=== PATIENT | female | born 1960 | race Hispanic/Latino ===

== ENCOUNTER 2018-07-07 16:53 | Emergency (ER) | payer BC, OTHER ==
[~2018-07-07] VITALS: Ht 160 cm; Wt 76.7 kg
--- OUTSIDE RECORDS SUMMARY | 2018-07-07 16:56 | XMS REPORT | Continuity of Care Document ---
Author Author [facility] Interface Address Unknown Phone Unavailable Problems Problem Status Onset Date Classification Date Reported Comments Source History of migraine Active Problem 09/09/2017 [facility] History of breast cancer Active Diagnosis 09/09/2017 [facility] History of rheumatoid arthritis Active Problem 09/09/2017 [facility] Fatigue, unspecified type Active Diagnosis 08/28/2017 [facility] History of vitamin D deficiency Active Problem 09/09/2017 [facility] Special screening for malignant neoplasms, colon Active Diagnosis 08/28/2017 [facility] Breast cancer Active Problem 08/28/2017 [facility] Prediabetes Active Diagnosis 09/09/2017 [facility] High cholesterol Active Diagnosis 09/09/2017 [facility] Encounter to discuss test results Active Diagnosis 09/09/2017 [facility] Rheumatoid arthritis Active Problem 04/25/2016 [facility] Migraine Active Problem 04/25/2016 [facility] Routine general medical examination at health care facility Active Diagnosis 01/05/2014 [facility] Encounter for screening mammogram for malignant neoplasm of breast Active Diagnosis 01/05/2014 [facility] Encounter for screening colonoscopy Active Diagnosis 01/05/2014 [facility] Acute upper respiratory infection, unspecified Active Diagnosis 01/31/2016 [facility] Cough Active Diagnosis 01/31/2016 [facility] Screening for breast cancer Active Diagnosis 04/25/2016 [facility] Acute cystitis with hematuria Active Diagnosis 04/25/2016 [facility] Cloudy urine Active Diagnosis 04/25/2016 [facility] Upper respiratory tract infection, unspecified type Active Diagnosis 04/25/2016 [facility] Medications Medication Details Route Status Patient Instructions Ordering Provider Order Date Source Atorvastatin Calcium 1 tablet Orally Active 10 mg Orally Once a day Jake 09/05/2017 [facility] Cipro 1 tablet Orally Active 500 MG Orally Twice a day [place] 04/22/2016 [facility] Levaquin 1 tablet Orally Active 500 MG Orally Once a day Ted 01/26/2016 [facility] Bromfed DM 10 ml as needed Orally Active 30-2-10 MG/5ML Orally every 6 hrs Ted 01/26/2016 [facility] BRISDELLE 1- BRAND MEDICALLY NECESSARY PO Active 7.5MG PO once a day at night [place] 01/05/2014 [facility] Lipitor 1 tablet Orally Active 20 mg Orally Once a day Ted 12/29/2013 [facility] Vitamin D (Ergocalciferol) 1 capsule Orally Active 25555 UNIT Orally once per week [place] 12/29/2013 [facility] Tramadol HCl 1 tablet as needed Orally Active 50 MG Orally every 6 hrs [facility] Letrozole 1 tablet Orally Active 2.5 MG Orally Once a day [facility] PrednisoLONE 1 tablet Orally Active 5 MG Orally Once a day [facility] Methotrexate Sodium Unknown Orally Active 5 MG Orally [facility] Humira 0.8 Subcutaneous Active 40 MG/0.8ML Subcutaneous [facility] Methotrexate Unknown Orally Active 2.5 MG Orally [facility] Esgic 1 capsule as needed Orally Active 50-325-40 MG Orally every 4 hrs [facility] [place] 1 tablet as needed Orally Active 7.5-325 MG Orally every 6 hrs [facility] Tramadol HCl 1 tablet as needed Orally Active 50 MG Orally every 6 hrs [facility] Gabapentin 2 capsule Orally Active 300 MG Orally daily at HS [facility] Vitamin D (Ergocalciferol) 1 capsule Orally Active 07817 UNIT Orally once a week [facility] Methotrexate Sodium Unknown Orally Active 2.5 MG Orally [facility] PrednisoLONE 1 tablet Orally Active 5 MG Orally Once a day [facility] Letrozole 1 tablet Orally Active 2.5 MG Orally Once a day [place] [facility] Allergies, Adverse Reactions, Alerts Substance Category Reaction Severity Reaction type Status Date Reported Comments Source N.K.D.A. Adverse Reaction Info Not Available Adverse Reaction Active 09/05/2017 [facility] Immunizations Immunization Date Given Site Status Last Updated Comments Source FLU 3YRS & [place] [address] 12/28/2013 completed [facility] Results Order Name Results Value Reference Range Date Interpretation Comments Source Vital Signs Vital Sign Value Date Comments Source Weight 176 09/05/2017 [facility] Height 66 09/05/2017 [facility] Heart Rate 80 09/05/2017 [facility] Diastolic (mm Hg) 80 09/05/2017 [facility] Systolic (mm Hg) 118 09/05/2017 [facility] Weight 177 08/22/2017 [facility] Height 66 08/22/2017 [facility] Heart Rate 68 08/22/2017 [facility] Diastolic (mm Hg) 74 08/22/2017 [facility] Systolic (mm Hg) 118 08/22/2017 [facility] Weight 162 04/22/2016 [facility] Height 66 04/22/2016 [facility] Heart Rate 75 04/22/2016 [facility] Diastolic (mm Hg) 77 04/22/2016 [facility] Systolic (mm Hg) 118 04/22/2016 [facility] Weight 168 01/26/2016 [facility] Height 66 01/26/2016 [facility] Temperature Oral (F) 98.4 F 01/26/2016 [facility] Heart Rate 75 01/26/2016 [facility] Diastolic (mm Hg) 75 01/26/2016 [facility] Systolic (mm Hg) 125 01/26/2016 [facility] Weight 129 12/28/2013 [facility] Height 66 12/28/2013 [facility] Temperature Oral (F) 98.9 F 12/28/2013 [facility] Heart Rate 88 12/28/2013 [facility] Diastolic (mm Hg) 72 12/28/2013 [facility] Systolic (mm Hg) 110 12/28/2013 [facility] Encounters Location Location Details Encounter Type Encounter Number Reason For Visit Attending Provider ADM Date DC Date Status Source [facility] FIELD CAPTAIN- PHYSICAL EXAM [id number] 12/28/2013 12/28/2013 [facility] FIELD CAPTAIN- PHYSICAL EXAM [id number] 12/28/2013 12/28/2013 [facility] FIELD CAPTAIN- PHYSICAL EXAM [id number] 12/28/2013 12/28/2013 [facility] FIELD CAPTAIN- PHYSICAL EXAM [id number] 12/28/2013 12/28/2013 [facility] FIELD CAPTAIN- PHYSICAL EXAM [id number] 12/28/2013 12/28/2013 [facility] FIELD CAPTAIN- PHYSICAL EXAM [id number] 12/28/2013 12/28/2013 [facility] FIELD CAPTAIN- PHYSICAL EXAM [id number] 12/28/2013 12/28/2013 [facility] FIELD CAPTAIN- PHYSICAL EXAM [id number] 12/28/2013 12/28/2013 [facility] FIELD CAPTAIN- PHYSICAL EXAM [id number] 12/28/2013 12/28/2013 [facility] FIELD CAPTAIN- PHYSICAL EXAM [id number] 12/28/2013 12/28/2013 [facility] Lab results- rx sent [id number] 12/29/2013 12/29/2013 [facility] Lab results- rx sent [id number] 12/29/2013 12/29/2013 [facility] Lab results- rx sent [id number] 12/29/2013 12/29/2013 [facility] Lab results- rx sent [id number] 12/29/2013 12/29/2013 [facility] Lab results- rx sent [id number] 12/29/2013 12/29/2013 [facility] Lab results- rx sent [id number] 12/29/2013 12/29/2013 [facility] Lab results- rx sent [id number] 12/29/2013 12/29/2013 [facility] Lab results- rx sent [id number] 12/29/2013 12/29/2013 [facility] Lab results- rx sent [id number] 12/29/2013 12/29/2013 [facility] Lab results- rx sent [id number] 12/29/2013 12/29/2013 [facility] [place] presciption [id number] 01/05/2014 01/05/2014 [facility] [place] presciption [id number] 01/05/2014 01/05/2014 [facility] [place] presciption [id number] 01/05/2014 01/05/2014 [facility] [place] presciption [id number] 01/05/2014 01/05/2014 [facility] [place] presciption [id number] 01/05/2014 01/05/2014 [facility] [place] presciption [id number] 01/05/2014 01/05/2014 [facility] [place] presciption [id number] 01/05/2014 01/05/2014 [facility] [place] presciption [id number] 01/05/2014 01/05/2014 [facility] Prior Auth needed on [place] [id number] 01/11/2014 01/11/2014 [facility] Prior Auth needed on [place] [id number] 01/11/2014 01/11/2014 [facility] Prior Auth needed on [place] [id number] 01/11/2014 01/11/2014 [facility] Prior Auth needed on [place] [id number] 01/11/2014 01/11/2014 [facility] Prior Auth needed on [place] [id number] 01/11/2014 01/11/2014 [facility] Prior Auth needed on [place] [id number] 01/11/2014 01/11/2014 [facility] Prior Auth needed on [place] [id number] 01/11/2014 01/11/2014 [facility] Prior Auth needed on [place] [id number] 01/11/2014 01/11/2014 [facility] Prior AUth on [place] [id number] 01/13/2014 01/13/2014 [facility] Prior AUth on [place] [id number] 01/13/2014 01/13/2014 [facility] Prior AUth on [place] [id number] 01/13/2014 01/13/2014 [facility] Prior AUth on [place] [id number] 01/13/2014 01/13/2014 [facility] Prior AUth on [place] [id number] 01/13/2014 01/13/2014 [facility] Prior AUth on [place] [id number] 01/13/2014 01/13/2014 [facility] Requesting Rx and PA on Paroxitine [id number] 02/09/2014 02/09/2014 [facility] Requesting Rx and PA on Paroxitine [id number] 02/09/2014 02/09/2014 [facility] Requesting Rx and PA on Paroxitine [id number] 02/09/2014 02/09/2014 [facility] Requesting Rx and PA on Paroxitine [id number] 02/09/2014 02/09/2014 [facility] Requesting Rx and PA on Paroxitine [id number] 02/09/2014 02/09/2014 [facility] Requesting Rx and PA on Paroxitine [id number] 02/09/2014 02/09/2014 [facility] MIGRAINES [id number] 12/28/2014 12/28/2014 [facility] MIGRAINES [id number] 12/28/2014 12/28/2014 [facility] MIGRAINES [id number] 12/28/2014 12/28/2014 [facility] MIGRAINES [id number] 12/28/2014 12/28/2014 [facility] Unknown [id number] 01/09/2015 01/09/2015 [facility] Unknown [id number] 01/09/2015 01/09/2015 [facility] Unknown [id number] 01/09/2015 01/09/2015 [facility] Unknown [id number] 01/09/2015 01/09/2015 [facility] Order for Pawan Breast US [id number] 02/13/2015 02/13/2015 [facility] Order for [place] Breast US [id number] 02/13/2015 02/13/2015 [facility] Order for [place] Breast US [id number] 02/13/2015 02/13/2015 [facility] Order for [place] Breast US [id number] 02/13/2015 02/13/2015 [facility] Order for breast Biopsy [id number] 02/27/2015 02/27/2015 [facility] Order for breast Biopsy [id number] 02/27/2015 02/27/2015 [facility] Order for breast Biopsy [id number] 02/27/2015 02/27/2015 [facility] cough [id number] 01/26/2016 01/26/2016 [facility] cough [id number] 01/26/2016 01/26/2016 [facility] UTI [id number] 04/22/2016 04/22/2016 [facility] Procedures Procedure Code Date Perfomer Comments Source
--- OUTSIDE RECORDS SUMMARY | 2018-07-07 16:57 | XMS REPORT ---
Author Venu Lopes Organization [employer] Address Unknown Phone Unavailable Care Team Providers Care Claim Service Representative Name Role Phone Venu Joseph CP Unavailable Allergies, Adverse Reactions, Alerts Substance Reaction Event Type N.K.D.A. Info Not Available Non Drug Allergy Problems Problem Type Condition Code Onset Dates Condition Status Assessment History of migraine Z86.69 Active Assessment History of breast cancer Z85.3 Active Assessment History of rheumatoid arthritis Z87.39 Active Assessment Fatigue, unspecified type R53.83 Active Assessment History of vitamin D deficiency Z86.39 Active Problem History of vitamin D deficiency Z86.39 Active Problem History of rheumatoid arthritis Z87.39 Active Problem History of breast cancer Z85.3 Active Assessment Encounter for routine gynecological examination Z01.419 Active Assessment Special screening for malignant neoplasms, colon Z12.11 Active Problem History of migraine Z86.69 Active Problem Breast cancer C50.919 Active Medications Medication Code System Code Instructions Start Date End Date Status Dosage Tramadol HCl [facility] 45113468116 50 MG Orally every 6 hrs Active 1 tablet as needed Letrozole [facility] 41107101409 2.5 MG Orally Once a day Active 1 tablet Vital Signs Date/Time: August 22, 2017 BMI 28.57 Index Weight 177 lbs Height 66 in Cardiac Monitoring Heart Rate 68 /min Blood Pressure Diastolic 74 mm Hg Blood Pressure Systolic 118 mm Hg Results Name Result Date Reference Range Unit Abnormality Flag Pap IG, rfx HPV all pth ----. Comment [id number] ----Test Methodology: CTIM 20170822 ----Note: Comment [id number] ----. . [id number] ----DIAGNOSIS: Comment [id number] ----Specimen adequacy: Comment [id number] ----Clinician provided ICD10: Comment [id number] ----Performed by: Comment [id number] Summary Purpose [employer] Submission
--- OUTSIDE RECORDS SUMMARY | 2018-07-07 16:57 | XMS REPORT ---
Author Author Norma Jean [facility] eClinicalWorks Address Unknown Phone Unavailable Care Team Providers Care Textile Colorist Formulator Name Role Phone Norma Jean Unavailable Allergies, Adverse Reactions, Alerts Substance Reaction Event Type N.K.D.A. 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 [facility] Dec 28, 2013 cough [facility] Jan 26, 2016 Lab results- rx sent [facility] Dec 29, 2013 Brisdelle presciption [facility] Jan 05, 2014 Order for breast Biopsy [facility] Feb 27, 2015 Unknown [facility] Jan 09, 2015 Order for Pawan Breast US [facility] Feb 13, 2015 Problems Problem Type Condition ICD-9 Code Onset Dates Condition Status Problem Rheumatoid arthritis 714.0 Active Problem Breast cancer C50.919 Active Problem Migraine 346.90 Active Assessment Acute upper respiratory infection, unspecified J06.9 Active Assessment Breast cancer C50.919 Active Assessment Cough R05 Active Medications Medication Code System Code Instructions Start Date End Date Status Dosage Methotrexate Sodium [facility] [address]-97 5 MG Orally Active Unknown Methotrexate [facility] [address]-84 2.5 MG Orally Active Unknown Esgic [facility] [address]-95 50-325-40 MG Orally every 4 hrs Active 1 capsule as needed BRISDELLE [facility] 1965852275 7.5MG PO once a day at night Jan 05, 2014 Active 1- BRAND MEDICALLY NECESSARY [place] [facility] [address]-09 7.5-325 MG Orally every 6 hrs Active 1 tablet as needed Tramadol HCl [facility] [address]-28 50 MG Orally every 6 hrs Active 1 tablet as needed Gabapentin [facility] [address]-23 300 MG Orally daily at HS Active 2 capsule Levaquin [facility] [address]-31 500 MG Orally Once a day Jan 26, 2016 Feb 05, 2016 Active 1 tablet Vitamin D (Ergocalciferol) [facility] [address]-42 48831 UNIT Orally once a week Active 1 capsule Lipitor [facility] [address]-08 20 mg Orally Once a day Dec 29, 2013 Active 1 tablet Bromfed DM [facility] [address]-53 30-2-10 MG/5ML Orally every 6 hrs Jan 26, 2016 Feb 05, 2016 Active 10 ml as needed Humira [facility] [address]-30 40 MG/0.8ML Subcutaneous Active 0.8 PrednisoLONE [facility] [address]-25 5 MG Orally Once a day Active 1 tablet Social History Social History Element Qualifiers Date Reported Flu Vaccine: . 2013Jan 26, 2016 Ethnicity . Status Jan 26, 2016 children . 4 Jan 26, 2016 Tobacco Use: . Are you a: never smoker Jan 26, 2016 Do you have pets? . Status: Yes Jan 26, 2016 Marital Status: . Jan 26, 2016 Caffeine intake? . Status: Yes Jan 26, 2016 Do you exercise? . Answer: Yes Jan 26, 2016 Do you drink alcohol? . Status: No Jan 26, 2016 Family history Qualifier Description Comment Date Reported Maternal Grandmother Comment not available Jan 26, 2016 Paternal Grandmother Comment not available Jan 26, 2016 Siblings Comment not available Jan 26, 2016 Maternal Grandfather Comment not available Jan 26, 2016 Children Comment not available Jan 26, 2016 Father throat cancer Jan 26, 2016 Paternal Grandfather Comment not available Jan 26, 2016 Mother hypertension, diabetes, heart attack Jan 26, 2016 Other: Comment not available Jan 26, 2016 Vital Signs Date/Time: Jan 26, 2016 Weight 168 lbs Height 66 in Temperature 98.4 F Cardiac Monitoring Heart Rate 75 /min Blood Pressure Diastolic 75 mm Hg Blood Pressure Systolic 125 mm Hg Results CBC Summary Purpose eClinicalWorks Submission
--- OUTSIDE RECORDS SUMMARY | 2018-07-07 16:57 | XMS REPORT ---
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 [facility] Dec 28, 2013 Lab results- rx sent [facility] Dec 29, 2013 Primo presciption [facility] Jan 05, 2014 Problems Problem Type Condition ICD-9 Code Onset Dates Condition Status Problem Rheumatoid arthritis 714.0 Active Medications Medication Code System Code Instructions Start Date End Date Status Dosage [facility] MEDISPAN [id number] 7.5MG PO once a day at night Jan 05, 2014 Active 1- BRAND MEDICALLY NECESSARY Social History Social History Element Qualifiers Date Reported Flu Vaccine: . 2013Dec 28, 2013 Ethnicity . Status Dec 28, 2013 children . 4 Dec 28, 2013 Tobacco Use: . Are you a: never smoker Dec 28, 2013 Do you have pets? . Status: Yes Dec 28, 2013 Marital Status: . Dec 28, 2013 Caffeine intake? . Status: Yes Dec 28, 2013 Do you exercise? . Answer: Yes Dec 28, 2013 Do you drink alcohol? . Status: No Dec 28, 2013 Summary Purpose eClinicalWorks Submission
--- OUTSIDE RECORDS SUMMARY | 2018-07-07 16:57 | XMS REPORT ---
Author Author Margarita Johnson [facility] eClinicalWorks Address Unknown Phone Unavailable Care Team Providers Care Building Energy Consultant Name Role Phone Margarita Johnson Unavailable Encounters Encounter Location Date Prior Auth needed on Brisdelle [facility] Jan 11, 2014 Prior AUth on kelvin [facility] Jan 13, 2014 Requesting Rx and PA on Paroxitine [facility] Feb 09, 2014 ASSOCIATE DIRECTOR CAREER SERVICES- PHYSICAL EXAM [facility] Dec 28, 2013 Lab results- rx sent [facility] Dec 29, 2013 Brisdelle presciption [facility] Jan 05, 2014 Problems Problem Type Condition ICD-9 Code Onset Dates Condition Status Problem Rheumatoid arthritis 714.0 Active Social History Social History Element Qualifiers Date [...]
--- OUTSIDE RECORDS SUMMARY | 2018-07-07 16:57 | XMS REPORT ---
Author Author Skyla Amador [facility] eClinicalWorks Address Unknown Phone Unavailable Care Team Providers Care Plant And Maintenance Technician Name Role Phone Skyla Amador Unavailable Encounters Encounter Location Date Prior Auth needed on Brisdelle [facility] Jan 11, 2014 Prior AUth on Francoiseisdcami [facility] Jan 13, 2014 Requesting Rx and PA on Paroxitine [facility] Feb 09, 2014 MIGRAINES [facility] Dec 28, 2014 CUSHION GUM APPLICATOR- PHYSICAL EXAM [facility] Dec 28, 2013 Lab results- rx sent [facility] Dec 29, 2013 Brlilyelle presciption [facility] Jan 05, 2014 Unknown [facility] Jan 09, 2015 Order for Pawan Breast US [facility] Feb 13, 2015 Problems Problem Type Condition ICD-9 Code Onset Dates Condition Status Problem Rheumatoid arthritis 714.0 Active Problem Migraine 346.90 Active Social History Social History Element Qualifiers Date Reported Flu Vaccine: . 2013Dec 28, 2014 Ethnicity . Status Dec 28, 2014 children . 4 Dec 28, 2014 Tobacco Use: . Are you a: never smoker Dec 28, 2014 Do you have pets? . Status: Yes Dec 28, 2014 Marital Status: . Dec 28, 2014 Caffeine intake? . Status: Yes Dec 28, 2014 Do you exercise? . Answer: Yes Dec 28, 2014 Do you drink alcohol? . Status: No Dec 28, 2014 Summary Purpose eClinicalWorks Submission
--- OUTSIDE RECORDS SUMMARY | 2018-07-07 16:57 | XMS REPORT ---
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
--- OUTSIDE RECORDS SUMMARY | 2018-07-07 16:57 | XMS REPORT ---
Author Author Norma Jean [facility] eClinicalWorks Address Unknown Phone Unavailable Care Team Providers Care Water Filter Cleaner Name Role Phone Norma Jean Unavailable Allergies, Adverse Reactions, Alerts Substance Reaction Event Type N.K.D.A. 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 [facility] Dec 28, 2013 cough [facility] Jan 26, 2016 Lab results- rx sent [facility] Dec 29, 2013 UTI SYMPTOMS [facility] Apr 22, 2016 Brisdelle presciption [facility] Jan 05, 2014 Order for breast Biopsy [facility] Feb 27, 2015 Unknown [facility] Jan 09, 2015 Order for Pawan Breast US [facility] Feb 13, 2015 Problems Problem Type Condition ICD-9 Code Onset Dates Condition Status Problem Rheumatoid arthritis 714.0 Active Problem Breast cancer C50.919 Active Problem Migraine 346.90 Active Assessment Screening for breast cancer Z12.39 Active Assessment Acute cystitis with hematuria N30.01 Active Assessment Cloudy urine R82.90 Active Assessment Upper respiratory tract infection, unspecified type J06.9 Active Medications Medication Code System Code Instructions Start Date End Date Status Dosage Hollis [facility] [address]-41 7.5-325 MG Orally every 6 hrs Active 1 tablet as needed Tramadol HCl [facility] [address]-55 50 MG Orally every 6 hrs Active 1 tablet as needed Methotrexate Sodium Unknown 0 2.5 MG Orally Active Unknown Esgic [facility] [address]-99 50-325-40 MG Orally every 4 hrs Active 1 capsule as needed [facility] 9086[facility]85 [facility].5MG PO once a day at night Jan 05, 2014 Active 1- BRAND MEDICALLY NECESSARY Methotrexate [facility] [address]-63 2.5 MG Orally Active Unknown Gabapentin [facility] [address]-01 300 MG Orally daily at HS Active 2 capsule PrednisoLONE [facility] [address]-78 5 MG Orally Once a day Active 1 tablet Lipitor [facility] [address]-28 20 mg Orally Once a day Dec 29, 2013 Active 1 tablet Humira [facility] [address]-52 40 MG/0.8ML Subcutaneous Active 0.8 Vitamin D (Ergocalciferol) [facility] [address]-59 69645 UNIT Orally once a week Active 1 capsule Letrozole [facility] [address]-28 2.5 MG Orally Once a day Active 1 tablet Cipro [facility] [address]-29 500 MG Orally Twice a day Apr 22, 2016 Apr 27, 2016 Active 1 tablet Social History Social History Element Qualifiers Date Reported Flu Vaccine: . 2013Apr 22, 2016 Ethnicity . Status Apr 22, 2016 children . 4 Apr 22, 2016 Tobacco Use: . Are you a: never smoker Apr 22, 2016 Do you have pets? . Status: Yes Apr 22, 2016 Marital Status: . Apr 22, 2016 Caffeine intake? . Status: Yes Apr 22, 2016 Do you exercise? . Answer: Yes Apr 22, 2016 Do you drink alcohol? . Status: No Apr 22, 2016 Family history Qualifier Description Comment Date Reported Maternal Grandmother Comment not available Apr 22, 2016 Paternal Grandmother Comment not available Apr 22, 2016 Siblings Comment not available Apr 22, 2016 Maternal Grandfather Comment not available Apr 22, 2016 Children Comment not available Apr 22, 2016 Father throat cancer Apr 22, 2016 Paternal Grandfather Comment not available Apr 22, 2016 Mother hypertension, diabetes, heart attack Apr 22, 2016 Other: Comment not available Apr 22, 2016 Vital Signs Date/Time: Apr 22, 2016 Weight 162 lbs Height 66 in Cardiac Monitoring Heart Rate 75 /min Blood Pressure Diastolic 77 mm Hg Blood Pressure Systolic 118 mm Hg Results URINE AUTO W/O SCOPE Summary Purpose eClinicalWorks Submission
--- OUTSIDE RECORDS SUMMARY | 2018-07-07 16:57 | XMS REPORT ---
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 [facility] Dec 28, 2013 Lab results- rx sent [facility] Dec 29, 2013 Problems Problem Type Condition ICD-9 Code Onset Dates Condition Status Problem Rheumatoid arthritis 714.0 Active Medications Medication Code System Code Instructions Start Date End Date Status Dosage Lipitor MEDISPAN [address]-89 20 mg Orally Once a day Dec 29, 2013 Active 1 tablet Vitamin D (Ergocalciferol) [facility] [address]-75 66997 UNIT Orally once per week Dec 29, 2013 Mar 29, 2014 Active 1 capsule Social History Social History Element Qualifiers Date [...]
--- OUTSIDE RECORDS SUMMARY | 2018-07-07 16:57 | XMS REPORT ---
Author Author Margarita Johnson [facility] eClinicalWorks Address Unknown Phone Unavailable Care Team Providers Care Dry Cleaner Hand Name Role Phone Margarita Johnson Unavailable Encounters Encounter Location Date Prior Auth needed on Brisdelle [facility] Jan 11, 2014 Prior AUth on kelvin [facility] Jan 13, 2014 Requesting Rx and PA on Paroxitine 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 Dec 28, 2013 Lab results- rx sent [facility] Dec 29, 2013 Brisdelle presciption [facility] Jan 05, 2014 Problems Problem Type Condition [...]
--- OUTSIDE RECORDS SUMMARY | 2018-07-07 16:57 | XMS REPORT ---
Author Author Margarita Johnson Organization eClinicalWorks Address Unknown Phone Unavailable Care Team Providers Care Laser Print Operator Name Role Phone Margarita Johnson CP Unavailable Allergies, Adverse Reactions, Alerts Substance Reaction Event Type N.K.D.A. 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 [facility] Dec 28, 2013 Lab results- rx sent [facility] Dec 29, 2013 Problems Problem Type Condition ICD-9 Code Onset Dates Condition Status Assessment Routine general medical examination at health care facility V70.0 Active Assessment Encounter for screening mammogram for malignant neoplasm of breast V76.12 Active Problem Rheumatoid arthritis 714.0 Active Assessment Encounter for screening colonoscopy V76.51 Active Assessment Need for influenza vaccination V04.81 Active Medications Medication Code System Code Instructions Start Date End Date Status Dosage PrednisoLONE MEDISPAN [address]-10 5 MG Orally Once a day Active 1 tablet Methotrexate Sodium [facility] [address]-60 5 MG Orally Active Unknown Humira [facility]AN [address]-82 40 MG/0.8ML Subcutaneous Active 0.8 Social History Social History Element Qualifiers Date [...] alcohol? . Status: No Dec 28, 2013 Vital Signs Date/Time: Dec 28, 2013 Weight 129 lbs Height 66 in Temperature 98.9 F Cardiac Monitoring Heart Rate 88 /min Blood Pressure Diastolic 72 mm Hg Blood Pressure Systolic 110 mm Hg Immunizations Vaccine Administration Date FLU 3YRS & UP [address]48 Dec 28, 2013 Summary Purpose eClinicalWorks Submission
--- OUTSIDE RECORDS SUMMARY | 2018-07-07 16:57 | XMS REPORT ---
Author Author Skyla Amador [facility] eClinicalWorks Address Unknown Phone Unavailable Care Team Providers Care Parimutuel Ticket Checker Name Role Phone Skyla Amador Unavailable Encounters Encounter Location Date Prior Auth needed on Brisdelle [facility] Jan 11, 2014 Prior AUth on Brisdelle [facility] Jan 13, 2014 Requesting Rx and PA on Paroxitine [facility] Feb 09, 2014 MIGRAINES [facility] Dec 28, 2014 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
--- OUTSIDE RECORDS SUMMARY | 2018-07-07 16:57 | XMS REPORT ---
Author Venu Lopes Organization eClinicalWorks Address Unknown Phone Unavailable Care Team Providers Care Corporate Treasury Analyst Name Role Phone Venu Joseph CP Unavailable Allergies, Adverse Reactions, Alerts Substance Reaction Event Type N.K.D.A. Info Not Available Non Drug Allergy Problems Problem Type Condition Code Onset Dates Condition Status Assessment History of breast cancer Z85.3 Active Assessment Prediabetes R73.03 Active Assessment High cholesterol E78.00 Active Problem History of vitamin D deficiency Z86.39 Active Problem History of rheumatoid arthritis Z87.39 Active Problem History of breast cancer Z85.3 Active Problem High cholesterol E78.00 Active Assessment Encounter to discuss test results Z71.89 Active Problem History of migraine Z86.69 Active Problem Prediabetes R73.03 Active Medications Medication Code System Code Instructions Start Date End Date Status Dosage Tramadol HCl [facility] 15713503903 50 MG Orally every 6 hrs Active 1 tablet as needed Letrozole ND 20087481602 2.5 MG Orally Once a day Active 1 tablet Atorvastatin Calcium ND 50636031588 10 mg Orally Once a day September 05, 2017 Active 1 tablet Vital Signs Date/Time: September 05, 2017 BMI 28.40 Index Weight 176 lbs Height 66 in Cardiac Monitoring Heart Rate 80 /min Blood Pressure Diastolic 80 mm Hg Blood Pressure Systolic 118 mm Hg Results No Known Results Summary Purpose eClinicalWorks Submission
--- NOTE | 2018-07-07 18:26 | Diagnostic Imaging Report ---
ADDENDUM #1 The impression should read: "No abnormalities of the right chest or ribs to explain pain. No acute cardiopulmonary process." Signed by: Dr. Migue Stephenson MD on 07/07/2018 8:57 PM ORIGINAL REPORT EXAMINATION: CXR 2 VIEW - HOPD INDICATION: Right-sided rib and muscle pain ^[id number] ^[id number] COMPARISON: None FINDINGS: PA and lateral views TUBES and LINES: None. LUNGS: Lungs are well inflated. There is no evidence of pneumonia or pulmonary edema. PLEURA: No pleural effusion or pneumothorax. HEART AND MEDIASTINUM: The cardiomediastinal silhouette is unremarkable.. BONES AND SOFT TISSUES: The bones are diffusely demineralized. No focal osseous lesions. There are right axillary lymph node dissection clips. No associated soft tissue mass. UPPER ABDOMEN: No free air under the diaphragm. IMPRESSION: No abdomen bowel disease of the right chest or ribs to explain pain. No acute cardiopulmonary process. Signed by: Dr. Migue Stephenson MD on 07/07/2018 6:23 PM
--- NOTE | 2018-07-07 20:30 | NUR ---
PT RESTING, VITAL SIGNS STABLE. PT AWARE OF POC AND WAIT TIMES.
--- NOTE | 2018-07-07 21:00 | Diagnostic Imaging Report ---
CT chest pulmonary embolism protocol CPT code: 81711 INDICATION: Right side chest pain, history of breast cancer (right) ^[id number] ^[id number] TECHNIQUE: Thin collimation axial images obtained through the level of the pulmonary arteries with additional imaging through the chest following the uneventful administration of 150 cc of low osmolar, nonionic intravenous contrast. Images reconstructed into coronal and sagittal MIPs for complete evaluation of the tortuous and overlapping pulmonary vascular structures and to reduce patient radiation dose. RADIATION DOSE: Total DLP: 448.5 mGy*cm Estimated effective dose: (DLP x 0.015 x size factor) mSv CTDIvol has been reviewed. It is below the limits set by the Radiation Protocol Committee (RPC). Dose reduction techniques used: Automated exposure control, adjustment of the mAs and/or kVp according to patient size, standardized low-dose protocol, and/or iterative reconstruction technique. COMPARISON: None. FINDINGS: Pulmonary artery: No filling defects are appreciated within the main, left, right, lobar or visualized segmental pulmonary arteries to suggest embolism. Main pulmonary artery measures 2.4 cm. Aorta: The thoracic aorta is not aneurysmal. No evidence for dissection. Lymph nodes: No enlarged axillary, supraclavicular, mediastinal, or hilar lymph nodes. Thyroid: Normal in size without mass in the visualized parenchyma.. Mediastinum: The heart is normal in size. No pericardial effusion. There is a small hiatal hernia. Lungs: Right Lung: Diffuse hyperinflation. There is subsegmental atelectasis in the anterior upper lobe, medial segment of the middle lobe, and medial aspect of the lower lobe. No confluent infiltrates. No soft tissue mass Left Lung: Diffuse hyperinflation. There is subsegmental atelectasis in the lower lobe. No confluent infiltrates. No soft tissue mass Pleura: No pleural effusion or pleural based mass. Abdomen: There is eventration of the right diaphragm. The liver attenuation is diminished suggestive of steatosis. A gallstone within the gallbladder measures 2.7 cm. Bones: There is a 3 mm bone island in the right humeral head. No lytic lesions. Soft tissues: Postoperative changes of the right breast. No soft tissue mass. IMPRESSION: 1. No evidence of pulmonary embolus or aortic dissection. 2. COPD. Bilateral subsegmental atelectasis. No infiltrates. 3. Steatosis. Intraluminal gallstone. Small hiatal hernia. Signed by: Dr. Migue Stephenson MD on 07/07/2018 8:57 PM
[2018-07-07 21:22] VITALS: BP 142/72
[2018-07-07] MEDS ORDERED: IOPAMIDOL 370 MG/ML 50ML INFUS..BTL INJ ONE (21:30)
== END 2018-07-07 21:26 | disposition home or self-care (01) ==
LOC: FSED 16:53
DX: R07.89 Other chest pain (principal); R09.1 Pleurisy; R10.11 Right upper quadrant pain; Z85.3 Personal history of malignant neoplasm of breast
CPT/HCPCS: 71046; 71260; 80053; 84484; 85025; 85379; 99284; Q9967

== ENCOUNTER 2020-06-22 14:01 | Emergency (ER) | payer SELFPAY ==
[~2020-06-22] VITALS: Ht 167.6 cm; Wt 73.5 kg
[2020-06-22] MEDS ORDERED: ACETAMINOPHEN 325 MG TAB PO ONE (14:30)
[2020-06-22] MEDS ORDERED: ACETAMINOPHEN 325 MG TAB ONE (14:50)
[2020-06-22] MEDS ORDERED: SODIUM CHLORIDE 0.9% 50ML 50 ML ONE (14:52)
[2020-06-22] MEDS ORDERED: IOPAMIDOL 370 MG/ML 200 ML INFUS..BTL INJ ONE (14:53)
[2020-06-22] MEDS ORDERED: POTASSIUM CHLORIDE 10MEQ EA PO ONE (15:00)
[2020-06-22] MEDS ORDERED: POTASSIUM CHLORIDE 20 MEQ TAB CR PO ONE (16:03)
[2020-06-22] MEDS ORDERED: ULTRAM 50MG50 MG PO (16:23)
[2020-06-22 16:39] VITALS: BP 145/74
== END 2020-06-22 16:45 | disposition home or self-care (01) ==
LOC: FSED 14:20
DX: G89.3 Neoplasm related pain (acute) (chronic) (principal); G62.9 Polyneuropathy, unspecified; R07.89 Other chest pain; M54.2 Cervicalgia; R94.31 Abnormal electrocardiogram [ECG] [EKG]; Z85.3 Personal history of malignant neoplasm of breast
CPT/HCPCS: 70491; 71260; 80053; 81003; 82553; 84484; 85025; 99283; Q9967; 93005